=== PATIENT | female | born 1950 | race Caucasian/White ===

== ENCOUNTER 2016-05-22 09:56 | Emergency (ER) | payer BC ==
--- NOTE | 2016-05-22 10:13 | ERNOTE ---
Medical Problem HPI - General Chief Complaint: General Assessment Time Seen by Provider: 05/22/16 10:05 Source: patient Exam Limitations: no limitations - Immun/Allergies/Home Medications Immunizations: IMMUNIZATION HX Immunizations Up to Date Yes History of Influenza Vaccine No Hx Pneumococcal Vaccination No Allergies/Adverse Reactions: Allergies No Known Allergies Allergy (Unverified 05/22/16 10:18) Home Medications: HOME MEDICATIONS Lovastatin 20 mg PO DAILY 01/03/13 [Last Taken 05/21/16] Xanax 1 mg PO DAILY 01/03/13 [Last Taken 06/28/14 20:00 1mg] Lansoprazole [Prevacid] 30 mg PO DAILY 06/29/14 [Last Taken 05/22/16] Propranolol HCl [Inderal LA] 120 mg PO DAILY 06/29/14 [Last Taken 05/22/16] Ramipril [Altace] 5 mg PO DAILY 06/29/14 [Last Taken 05/22/16] Aspirin [Aspir-Low] 81 mg PO 05/22/16 [Last Taken Unknown] Ciprofloxacin HCl [Cipro] 500 mg PO BID 05/22/16 [Last Taken Unknown] metroNIDAZOLE [Flagyl] 500 mg PO TID 05/22/16 [Last Taken Unknown] - History of Present History Narrative: Patient has had diarrhea for about two weeks. Six days ago she was seen by Lois Gonzales and started on cipro and flagyl. She feels that the flagyl is causing her to have more reflux as well as a metallic taste in her mouth. The diarrhea has decreased, the stool is more formed and only has about 3-4 BM per day, one today. Shortly after waking up this morning around 06:00 she started to have difficulty speaking, denies any numbness, weakness, vision changes or other symptoms at that time. Her speech has improved but she is still concerned. Date (Duration): 05/22/16 Time (Timing): 06:00 Review of Systems - Review of Systems Constitutional: Present: recent illness. Absent: fever, chills EYE: Absent: blurred vision, double vision, vision changes ENT: Absent: nose congestion, nasal drainage, sore throat Respiratory: Absent: shortness of breath, cough Cardiology: Absent: chest pain, palpitations Gastrointestinal/Abdominal: Present: See HPI, nausea, diarrhea. Absent: vomiting, abdominal pain Genitourinary: Present: no symptoms reported Musculoskeletal: Present: back pain Neurological: Absent: headache, weakness, numbness, tremors, pre-existing deficit - Patient's Past Medical History Patient History - Medical: Anxiety, GERD Patient History - Cardiac/Respiratory: Arrhythmias, Hypertension, Hyperlipidemia Patient History - Cancer: No Hx of Cancer Patient History - Surgical Procedures: Appendectomy, Cholecystectomy, Total Knee Replacement - Social History Living Situations: home Abuse History: No History of abuse Psych History: Hx of Anxiety - Immunizations Immunizations Up to Date: Yes Hx Pneumococcal Vaccination: No History of Influenza Vaccine: No Physical Exam - Physical Exam General Appearance: Present: wd/wn, alert, no apparent distress, anxious Eye Exam: Normal inspection: bilateral, PERRL: bilateral, EOMI: bilateral Ears, Nose, Throat: Present: normal ENT inspection, normal pharynx Neck: Present: normal inspection, nontender, supple, full range of motion. Absent: carotid bruit Respiratory: Present: no respiratory distress, normal breath sounds, no accessory muscle use, lungs clear Cardiovascular/Chest: Present: regular rate, rhythm, no murmur Gastrointestinal/Abdominal: Present: nontender, nondistended, soft Extremity Exam: Present: normal inspection Neurological Exam: Present: alert, oriented, normal mood/affect, no motor/ sensory deficits, felt cutter II-XII nml as tested, normal cerebellar test Skin Exam: Present: normal color, warm/dry ED Progress - Results and Orders Patient's Lab Results:: I have reviewed the patient's lab results. - Vital Signs Patient's Vital Signs:: I have reviewed the patient's vital signs. Vital Signs: Vital Signs 05/22/16 10:03 Temperature 37.3 C Pulse Rate 73 Respiratory 14 Rate Blood Pressure 133/67 O2 Sat by Pulse 100 Oximetry - EKG EKG: NSR, RBBB - incomplete, other - no acute changes EKG read: Interp. by me - X-Ray X-Ray #1 X-Ray: chest - no acute Interpretation: Reviewed by me - CT/Ultrasound CT/Ultrasound Narrative: CT head: no acute findings - Progress/Reassessment Chief Complaint: General Assessment Progress Note-Subjective: 05/22/16 11:[address] results with radiologist 05/22/16 12:28 discussed test results with patient and family, patient taking fluently, exam unchanged Departure - Departure Clinical Impression: Intermittent confusion Disposition: Home self-care Condition: Good Instructions: Confusion Additional Instructions: stop the flagyl, but continue the cipro call your doctor for follow up Referrals: Lois Gonzales FNP [Primary Care Provider] -
--- OUTSIDE RECORDS SUMMARY | 2016-05-22 10:20 | XMS REPORT | Continuity of Care Document ---
:1950 Author Organization [facility] [place] [address] Care Team Providers Name Role Phone Andriy Sandhu Primary Care Provider [phone] Source Comments This disclosure is being made pursuant to the [employer] program and maynot contain all information available regarding this patient.[facility] Active Allergies and Adverse Reactions Not on File Current Medications Be aware that medications may not be up to date as of this document. Alwaysverify current medications with the patient. Not on file Active Problems Not on file Social History Tobacco Use Types Packs/Day Years Used Date Never Smoker Last Filed Vital Signs Vital Sign Reading Time Taken Blood Pressure 130/60 09/28/2012 8:48 AM CDT Pulse 88 09/28/2012 8:48 AM CDT Temperature 36.2 C (97.1 F) 09/28/2012 8:48 AM CDT Respiratory Rate - - Height 1.6 m (5' 3") 09/28/2012 8:48 AM CDT Weight 81.421 kg (179 lb 8 oz) 09/28/2012 8:48 AM CDT Body Mass Index 31.81 09/28/2012 8:48 AM CDT Oxygen Saturation - - Plan of Care Health Maintenance Due Date Last Done Comments Retired-Pertussis Vaccine Adult 02/28/1967 Retired-Tetanus Vaccine Adult 02/28/1967 Mammogram 1988 Well Adult Visit 02/28/1998 Zoster Vaccine 60+ 2008 Bone Density 02/28/2013 Retired-Pneumococcal 23 Vaccine-65+ yo 02/28/2013 Retired-INFLUENZA VACCINE 10/17/2014 Colonoscopy 06/30/2022 06/30/2012, 02/16/2009 Results from Last 3 Months Not on file
--- OUTSIDE RECORDS SUMMARY | 2016-05-22 10:20 | XMS REPORT | Continuity of Care Document ---
:1950 Author Organization [facility] ([facility]) Address [place] [address] Phone [phone] Care Team Providers Name Role Phone Unavailable Primary Care Provider Unavailable Source Comments This disclosure is being made pursuant to the Care Everywhere program, applicable federal and state laws, and may not contain all informaitonavailable regarding this patient.[facility] ([facility]) Active Allergies and Adverse Reactions Not on File Current Medications Not on file Active Problems Not on file Social History Tobacco Use Types Packs/Day Years Used Date Never Assessed Plan of Care Health Maintenance Due Date Last Done Comments HCV Screening 1950 Hepatitis B Vaccine (1 of 3 - Primary Series) 1950 Tdap Vaccine 02/28/1959 Lipid Disorder Screening 02/28/1966 Td Vaccine 02/28/1966 Mammogram 1988 Colonoscopy 02/28/1998 Zoster Vaccine 2008 Osteoporosis Screening (DXA Bone Density) 02/28/2013 Pneumococcal Vaccine (1 of 2 - PCV13) 02/28/2013 Influenza Vaccine: Seasonal (#1) 09/17/2015 Results from Last 3 Months Not on file
[2016-05-22 10:26] LABS: Hematocrit 36.7 % (37.0-47.0); Mean Cell Volume 92.9 fl (78-100); Mean Corpuscular Hemoglobin 30.4 pg (27-31); Mean Corpuscular Hgb Conc 32.7 g/dl (32-36); Neutrophil # 3.3 K/mm3 (1.3-6.0); Neutrophil % 56.1 % (42-75.0); Platelet Count 136 K/mm3 (150-450); Red Blood Count 3.95 M/mm3 (4.2-5.4); Red Cell Distribution Width 13.7 % (11.5-14.0); White Blood Count 5.9 K/mm3 (4.0-10.5)
[2016-05-22 10:40] LABS: Prothrombin Time (Patient) 11.5 Seconds (9.4-11.4)
[2016-05-22 10:46] LABS: INR 1.11 INR (0.90-1.10); Partial Thrombolplastin Time 25.7 Seconds (24-32)
[2016-05-22 11:43] LABS: BUN/Creatinine Ratio 12.6 (9.0-21.6)
[2016-05-22 11:44] LABS: Albumin * 3.5 gm/dl (3.4-5.0); Bilirubin, Total 0.4 mg/dL (0.0-1.1); Calcium * 8.9 mg/dL (7.9-10.9); Carbon Dioxide 24.8 mmol/L (24-32.6); Potassium 3.8 mmol/L (3.4-4.6); Total Protein 6.8 gm/dL (6.2-8.2)
[2016-05-22 12:33] VITALS: BP 116/55
== END 2016-05-22 12:38 | disposition home or self-care (01) ==
LOC: ER 09:56
DX: R41.0 Disorientation, unspecified (principal); I10 Essential (primary) hypertension; K21.9 Gastro-esophageal reflux disease without esophagitis; F41.9 Anxiety disorder, unspecified